=== PATIENT | male | born 1990 | race Caucasian/White ===

== ENCOUNTER 2024-12-03 02:33 | Emergency (ER) | payer OTHER ==
[~2024-12-03] VITALS: Ht 172.7 cm; Wt 100.4 kg
[2024-12-03 02:41] VITALS: O2SAT 98
[2024-12-03] MEDS: IBUPROFEN 600MG TABLET PO ONE (02:50)
[2024-12-03] MEDS ORDERED: IBUP-1455 MT (03:16)
[2024-12-03 03:56] VITALS: BP 129/97; PULSE 87; RESP 18; TEMP 36.8; O2SAT 97
== END 2024-12-03 03:57 | disposition home or self-care (01) ==
LOC: ER 02:33
DX: S90.31XA Contusion of right foot, initial encounter (principal); X50.1XXA Overexertion from prolonged static or awkward postures, initial encounter; Y93.89 Activity, other specified; Y92.89 Other specified places as the place of occurrence of the external cause; Y99.8 Other external cause status
CPT/HCPCS: 73630; 99283